=== PATIENT | male | born 2000 | race Two or more races ===

== ENCOUNTER 2024-06-19 03:04 | Emergency (ER) | payer BC ==
[~2024-06-19] VITALS: Ht 167.6 cm; Wt 73.5 kg
[2024-06-19] MEDS ORDERED: TETRACAINE HCL 20 DR/ML DROPS OP STA (04:44)
== END 2024-06-19 05:03 | disposition home or self-care (01) ==
LOC: ER 03:06
DX: T15.01XA Foreign body in cornea, right eye, initial encounter (principal)